=== PATIENT | female | born 1970 | race Caucasian/White ===

== ENCOUNTER 2017-01-25 10:21 | Emergency (ER) | payer BC ==
[~2017-01-25] VITALS: Ht 160 cm; Wt 63.5 kg
[2017-01-25 10:23] VITALS: BP_SYST 143
--- NOTE | 2017-01-25 10:28 | NUR ---
place pt to Room 8,report given to suman FRENCH
--- NOTE | 2017-01-25 10:30 | NUR ---
Recieved Pt in bed 8. Pt c/o right shoulder pain 3/10, throbbing, numbness and tingling senstation and the right side of face and hand, x 1 day. Pt able to follow commands and verbalize needs. No s/s of facial drooping, no slurred speech, Pt able to move bilateral upper and lower extremities equally. Pt stated she did not take anything to relieve s/s. Pt appears anxious, Pt unable to lay in bed still. Pt constantly moving upper extremites towards her face. Rapid speech noted, flight of ideas noted. Pt stated she has a hx of anxiety. Pt stated she use to take ativan PO. Pt is not currently taking any medications for her anxiety. Currently awaiting new orders.
--- NOTE | 2017-01-25 10:33 | NUR ---
Dr. Peralta at bedside evaluting Pt. Currently awaiting new orders.
[2017-01-25] MEDS ORDERED: LORazepam 1 MG TABLET PO ONE (10:45)
[2017-01-25] MEDS ORDERED: IBUPROFEN 800 MG TABLET PO ONE (10:45)
--- NOTE | 2017-01-25 10:58 | NUR ---
Dr. Peralta at the bedside re evaluating Pt. Currently awaiting new orders
[2017-01-25] MEDS ORDERED: FIORCET PO ONE (11:15)
--- NOTE | 2017-01-25 11:15 | NUR ---
Pt noted ambulating with assist to the bathroom with Pt's . Pt stated medication was effectived. Pt denies feeling anxious and pain. Currently awaiting new orders.
--- NOTE | 2017-01-25 11:51 | NUR ---
Patient given written and verbal discharge instructions and verbalizes understanding. ER MD discussed with patient the results and treatment provided. Patient in stable condition. Rx of Ativan and ibuprofen given. Patient educated on pain management and to follow up with PMD. Pain Scale 0/10. Opportunity for questions provided and answered.
== END 2017-01-25 11:51 | disposition home or self-care (01) ==
LOC: SED 10:21
DX: G43.909 Migraine, unspecified, not intractable, without status migrainosus (principal); F41.9 Anxiety disorder, unspecified; Z88.6 Allergy status to analgesic agent; Z88.8 Allergy status to other drugs, medicaments and biological substances
CPT/HCPCS: 99283